=== PATIENT | male | born 1935 | race Caucasian/White ===

== ENCOUNTER → 2021-12-17 | Outpatient (CLI) | payer OTHER | END | disposition home or self-care (01) | LOC: RAH 10:58 | PROVIDERS: ATTEND Internal Medicine | DX: M47.815 Spondylosis without myelopathy or radiculopathy, thoracolumbar region (principal); J69.0 Pneumonitis due to inhalation of food and vomit | CPT/HCPCS: 71046 ==

== ENCOUNTER 2022-11-26 08:09 | Day surgery (SDC) | payer OTHER ==
[2022-11-25 15:08] LABS: BASOPHILS # (AUTO) 0.09 K/uL (0.00-0.20); BASOPHILS % (AUTO) 1.2 % (0.0-5.0); EOSINOPHILS # (AUTO) 0.12 K/uL (0.00-0.70); EOSINOPHILS % (AUTO) 1.6 % (0.0-8.0); HEMATOCRIT 45.6 % (42-54); IMMATURE GRANULOCYTE ABSOLUTE 0.02 K/uL (0-1); LYMPHOCYTES # (AUTO) 1.3 K/uL (1.0-4.8); LYMPHOCYTES % (AUTO) 16.6 % (21.0-51.0); MEAN CORPUSCULAR HEMOGLOBIN 36.6 pg (27.0-33.0); MEAN CORPUSCULAR HGB CONC 33.1 g/dL (32.0-36.0); MEAN CORPUSCULAR VOLUME 110.4 fL (79-99); MONOCYTES # (AUTO) 0.9 K/uL (0.1-1.0); NEUTROPHILS # (AUTO) 5.2 K/uL (1.8-7.7); NEUTROPHILS % (AUTO) 68.3 % (40.0-77.0); PLATELET COUNT (AUTO) 197 K/uL (130-400); RED BLOOD CELL COUNT(AUTO) 4.13 MIL/uL (4.50-6.20); RED CELL DISTRIBUTION WIDTH 13.5 % (11.0-15.5); WHITE BLOOD COUNT (AUTO) 7.5 K/uL (4.8-10.8)
[2022-11-25 15:18] LABS: CREATININE 1.3 mg/dL (0.5-1.5); POTASSIUM 4.3 mmol/L (3.5-5.1)
[2022-11-25 15:21] LABS: INR 1.02 (0.85-1.15); PROTHROMBIN TIME 11.8 SEC (9.6-11.6)
[~2022-11-26] VITALS: Ht 180.3 cm; Wt 95.3 kg
[2022-11-26] VITALS (9 sets, daily range): BP systolic 122–141; BP diastolic 60–84; PULSE 56–64; RESP 14–18
[2022-11-26] MEDS ORDERED: LACTATED RINGERS 1000ML 1,000 ML IV ONE (08:46)
[2022-11-26] MEDS ORDERED: CLINDAMYCIN IVPB 900MG/50ML 50 ML IV ONE (10:11)
[2022-11-26] MEDS ORDERED: [UNRECOGNIZED DRUG - OTHER] PO (10:20)
[2022-11-26] MEDS ORDERED: APIX5TAB PO (10:20)
[2022-11-26] MEDS ORDERED: NEBI10TA12 PO (10:20)
[2022-11-26] MEDS ORDERED: TAMS-1 PO (10:20)
[2022-11-26] MEDS ORDERED: HYDR500C2 PO (10:20)
[2022-11-26] MEDS ORDERED: PANT40TA54 PO (10:20)
[2022-11-26] MEDS ORDERED: IRBE300T18 PO (10:20)
[2022-11-26] MEDS ORDERED: PROPOFOL 10 MG/ML 20ML VIAL IV ONE (11:00)
[2022-11-26] MEDS ORDERED: FENTANYL CITRATE PF 50 MCG/1 ML 2ML VIAL ONE (11:00)
[2022-11-26] MEDS ORDERED: MIDAZOLAM HCL 1 MG/ML 2ML VIAL ONE (11:01)
[2022-11-26] MEDS ORDERED: BUPIVACAINE/PF 0.5% 30ML VIAL ONE (11:02)
[2022-11-26] MEDS ORDERED: BUPIVACAINE/PF 0.5% 30ML VIAL IV ONE (11:09)
[2022-11-26] MEDS ORDERED: GABA-529 PO (11:37)
[2022-11-26] MEDS ORDERED: METH-662 PO (11:37)
[2022-11-26] MEDS ORDERED: DOCU-116 PO (11:37)
== END 2022-11-26 13:22 | disposition home or self-care (01) ==
LOC: DAH 08:09
PROVIDERS: ATTEND Surgery
DX: L72.3 Sebaceous cyst (principal); L72.0 Epidermal cyst; L90.5 Scar conditions and fibrosis of skin; L08.89 Other specified local infections of the skin and subcutaneous tissue; I10 Essential (primary) hypertension; E78.5 Hyperlipidemia, unspecified; Z88.0 Allergy status to penicillin; Z79.899 Other long term (current) drug therapy; Z90.49 Acquired absence of other specified parts of digestive tract; Z98.890 Other specified postprocedural states
CPT/HCPCS: 11404; A4215; A4221; A4222; A4223; A4452; A4663; J2250; J2704; J3010; J3490; J7030; J7120; 36415; 80048; 85025; 85610; 85730; 88304; 93005; A6260

== ENCOUNTER 2022-12-07 13:12 | Emergency (ER) | payer OTHER ==
[~2022-12-07] VITALS: Ht 180.3 cm; Wt 95.3 kg
[~2022-12-07 13:12] MED LIST: APIX5TAB PO; DOCU-116 PO; GABA-529 PO; HYDR500C2 PO; IRBE300T18 PO; METH-662 PO; NEBI10TA12 PO; PANT40TA54 PO; TAMS-1 PO; [UNRECOGNIZED DRUG - OTHER] PO
[2022-12-07] MEDS ORDERED: DIPH,PERTUSS(ACELL),TET VAC/PF 0.5 ML VIAL IM ONE (15:00)
[2022-12-07] MEDS ORDERED: MUPI22OI2 TP (15:14)
[2022-12-07] MEDS ORDERED: TETANUS/DIPHTHERIA TOXOID [ADULT] 0.5 ML VIAL IM ONE (15:24)
[2022-12-07 15:40] VITALS: BP 132/74; PULSE 68; RESP 16; O2SAT 98
== END 2022-12-07 15:58 | disposition home or self-care (01) ==
LOC: EDH 13:12
DX: S51.812A Laceration without foreign body of left forearm, initial encounter (principal); I10 Essential (primary) hypertension; Z90.49 Acquired absence of other specified parts of digestive tract; Z79.899 Other long term (current) drug therapy; Z98.890 Other specified postprocedural states; W18.39XA Other fall on same level, initial encounter; Y93.89 Activity, other specified; Y92.89 Other specified places as the place of occurrence of the external cause; Y99.8 Other external cause status
CPT/HCPCS: 12001; 90471; 90472; 90714; 93005

== ENCOUNTER → 2022-12-18 | Outpatient (CLI) | payer OTHER ==
[~2022-12-18] MED LIST changes: +MUPI22OI2 TP
== END | disposition home or self-care (01) ==
LOC: OIH 15:23
PROVIDERS: ATTEND Internal Medicine
DX: L03.114 Cellulitis of left upper limb (principal); M19.022 Primary osteoarthritis, left elbow
CPT/HCPCS: 73090

== ENCOUNTER 2023-01-13 17:05 | Emergency (ER) | payer OTHER, MEDICARE ==
[~2023-01-13] VITALS: Ht 182.9 cm; Wt 95.3 kg
[~2023-01-13 17:05] MED LIST changes: -HYDR500C2 PO; -IRBE300T18 PO; -METH-662 PO; -NEBI10TA12 PO; -[UNRECOGNIZED DRUG - OTHER] PO
[2023-01-13 17:45] LABS: HEMATOCRIT 42.6 % (42-54); MEAN CORPUSCULAR HEMOGLOBIN 36.5 pg (27.0-33.0); MEAN CORPUSCULAR HGB CONC 33.3 g/dL (32.0-36.0); MEAN CORPUSCULAR VOLUME 109.5 fL (79-99); PLATELET COUNT (AUTO) 218 K/uL (130-400); RED BLOOD CELL COUNT(AUTO) 3.89 MIL/uL (4.50-6.20); RED CELL DISTRIBUTION WIDTH 13.2 % (11.0-15.5); WHITE BLOOD COUNT (AUTO) 6.4 K/uL (4.8-10.8)
[2023-01-13 17:54] LABS: CREATININE 1.5 mg/dL (0.5-1.5)
[2023-01-13 17:59] LABS: ALBUMIN 3.3 g/dL (3.5-5.0); BILIRUBIN,TOTAL 0.6 mg/dL (0.2-1.0); TOTAL PROTEIN, SERUM 7.2 g/dL (6.0-8.3)
[2023-01-13] MEDS ORDERED: ASPI-1005 PO (18:33)
[2023-01-13 18:37] VITALS: BP 144/84; PULSE 80; RESP 17; O2SAT 95
[2023-01-16] MEDS ORDERED: NEBI10TA12 PO (16:03)
[2023-01-16] MEDS ORDERED: HYDR500C2 PO (16:03)
[2023-01-16] MEDS ORDERED: IRBE300T18 PO (16:03)
== END 2023-01-13 18:44 | disposition home or self-care (01) ==
LOC: EDH 17:05
DX: R53.1 Weakness (principal); G45.9 Transient cerebral ischemic attack, unspecified; I10 Essential (primary) hypertension; Z79.01 Long term (current) use of anticoagulants; Z79.899 Other long term (current) drug therapy; Z88.0 Allergy status to penicillin; Z90.49 Acquired absence of other specified parts of digestive tract
CPT/HCPCS: 36415; 70450; 71045; 80053; 84484; 85027; 93005